=== PATIENT | male | born 1945 | race Caucasian/White ===

== ENCOUNTER 2022-01-24 08:15 | Outpatient (CLI) | payer MEDICARE, SELFPAY ==
--- NOTE | ~2022-01-24 | NM_ITS ---
EXAMINATION: NM bone scan whole body DATE: 01/24/2022 11:23 INDICATION: Prostate cancer TECHNIQUE: 23.6 mCi Tc-99m HDP was administered intravenously. Delayed whole-body scintigrams were o btained. COMPARISON: 10/09/2013 FINDINGS: Prominent likely degenerative joint centered uptake at the medial compartment of the right knee. More subtle mild joint centered uptake at the bilateral hips and shoulders. Linear pattern of 3 foci of i ncreased uptake along the anterior right fifth-seventh ribs with a linear pattern suggestive of rib f ractures. No other suspicious foci of abnormal bone uptake. IMPRESSION: 1. 3 foci of increased uptake at the anterior right fifth-seventh ribs raising some linear pattern wh ich favors fracture versus metastatic disease. Correlate for clinical history of rib fractures at thi s location and consider correlation with either right rib radiographs or chest CT as clinically indic ated. Reviewed, dictated and finalized at location B. IMPRESSION: 1. 3 foci of increased uptake at the anterior right fifth-seventh ribs raising some linear pattern which favors fracture versus metastatic disease. Correlate for clinical history of rib fractures at this location and consider correlation with either right rib radiographs or chest CT as clinically indicated.
== END 2022-01-24 08:16 | disposition home or self-care (01) ==
PROVIDERS: PCP Family Medicine; Visit Provider Urology
DX: C61 Malignant neoplasm of prostate (principal)
CPT/HCPCS: 78306; A9561

== ENCOUNTER 2022-05-15 10:21 | Outpatient (CLI) | payer MEDICARE, SELFPAY ==
--- NOTE | ~2022-05-15 | DEXA_ITS ---
Bone Density Report Name: EMEKA KUMAR Age: 77 Sex: Male Ethnicity: White Date of : 1945 Indication: screening for osteoporosis; height loss; prior fracture; cancer; Referring Provider: TRACY SEGURA Study: Bone densitometry was performed. Exam Date: May 15, 2022 Accession number: [id number] Bone Density: Region BMD T-score Z-score Classification AP Spine(L1-L4) 0.977 -1.0 0.0 Normal Femoral Neck (Left) 0.737 -1.4 0.0 Osteopenia Total Hip (Left) 0.845 -1.2 -0.4 Osteopenia World Health Organization criteria for BMD impression classify patients as: Normal (T-score at or above -1.0), Osteopenia (T-score between -1.0 and -2.5), or Osteoporosis (T-score at or below -2.5). 10-year Fracture Risk: FRAX not reported because: Prior hip or vertebral fracture Previous Exams: Region Exam Age BMD T-score BMD Change BMD Change Date g/cm2 vs Baseline vs Previous Total Hip(Left) 05/15/2022 77 0.845 -1.2 -0.076 (-8.2%) -0.076 (-8.2%) 01/27/2016 71 0.921 -0.7 *Denotes significance at 95% confidence level, LSC for Total Hip = 0.027 g/cm2 Clinical Information Provided by Patient: Have had a previous hip or vertebral fracture Has had a low trauma fracture Has used the following medications: Vitamin D, Calcium Has the following medical conditions: Cancer Patient maximum height was 69 No regular weight bearing exercise Impression: The patient has low bone mass, based on the Left Femoral Neck T-score. The patient has risk factors, including: previous fracture. The BMD for the Total Hip(Left) decreased, changing by -8.2% since the last DXA exam. Discussion: INCREASED RISK OF FRACTURE DUE TO HISTORY OF LOW TRAUMA FRACTURE. The patient's previous fracture puts the patient at high risk of a future fracture. In untreated patients, the risk of osteoporotic fracture increases approximately two-fold for each 1.0 SD decrease in T-score. Low bone density is not the only risk factor for fracture; also consider factors such as patient's age, frailty or poor health, risk of falling, risk of injury, previous osteoporotic fracture, family history of osteoporosis, cigarette smoking, low body weight, etc. Not everyone with a low trauma fracture has osteoporosis; osteomalacia and other metabolic bone disorders should also be considered. Patients who have osteoporosis should be evaluated for specific diseases and conditions (secondary causes) that may cause or contribute to bone loss and fracture risk. National Osteoporosis Foundation (NOF) recommends pharmacologic intervention for pat
== END 2022-05-15 10:22 | disposition home or self-care (01) ==
PROVIDERS: PCP Family Medicine; Visit Provider Urology
DX: C61 Malignant neoplasm of prostate (principal); M85.852 Other specified disorders of bone density and structure, left thigh
CPT/HCPCS: 77080